=== PATIENT | male | born 1935 | race Caucasian/White ===

== ENCOUNTER 2022-09-09 20:59 | Inpatient (IN) ==
[2022-09-09 21:48] LABS: Basophils # (auto) 0.01 K/uL (0-0.2); Basophils % (auto) 0.2 %; Eosinophils # (auto) 0.02 K/uL (0-0.50); Eosinophils % (auto) 0.4 %; Hematocrit (blood only) 34.8 % (42.0-52.0); Hemoglobin 11.9 g/dl (14.0-18.0); Immature Granulocytes # (auto) 0.02 K/uL (0.01-0.20); Immature Granulocytes % (auto) 0.4 %; Lymphocytes # (auto) 0.53 K/uL (1.2-3.4); Lymphocytes % (auto) 10.3 %; Mean Corpuscular Hemoglobin 32.4 pg (25.0-34.0); Mean Corpuscular Hgb Conc 34.2 g/dL (32.0-36.0); Mean Corpuscular Volume 94.8 fL (80.0-100.0); Mean Platelet Volume 10.6 fL (9.4-12.4); Monocytes # (auto) 0.26 K/uL (0.11-0.59); Neutrophils # (auto) 4.32 K/uL (1.40-6.50); Neutrophils % (auto) 83.7 %; Platelet Count 147 K/uL (130-400); RDW Coefficient of Variation 14.5 % (11.5-14.5); RDW Standard Deviation 48.7 fL (36.4-46.3); Red Blood Count 3.67 M/uL (4.70-6.10); White Blood Count 5.16 K/ul (4.8-10.8)
[2022-09-09 21:58] LABS: Albumin Globulin Ratio 1.4 (0.9-2); Albumin Level 4.1 gm/dl (3.4-5.0); BUN Creatinine Ratio 16.4 (10-20); Bilirubin,Total 0.8 mg/dl (0.2-1.0); Creatinine Clr Calc Pharmacy 48.7 ml/min; Est GFR (African American) 65.7 ml/min; Est GFR (Non-African American) 56.7 ml/min; Globulin 2.9 gm/dl (2.5-4.0)
[2022-09-09 22:05] LABS: Troponin I High Sensitivity 23.2 pg/ml (0-20)
[2022-09-09 22:23] LABS: INR 1.1 (0.9-1.1); Partial Thromboplastin Ratio 1.4; Partial Thromboplastin Time 37.4 Seconds (21.0-31.0); Prothrombin Time 11.6 Seconds (9.0-12.0)
[2022-09-09 22:37] LABS: Magnesium 1.8 mg/dl (1.7-2.4)
--- NOTE | 2022-09-09 23:09 | Emergency Department Note ---
History of Present Illness General Chief complaint: Arrhythmia/Palpitations Stated complaint: PALPITATIONS,SWEATY, EYE PROBLEM,AFIB,DIZZY Time Seen by Provider: 09/09/22 21:57 History of Present Illness This 87-year-old male presents the ER complaining of racing heart, lightheadedness, dizziness and weakness for the past few days. Patient was seen here yesterday. He was offered admission and declined. He was seen by the PCPs office on Tuesday and started on metoprolol. Since then he feels like his symptoms are gotten worse. Patient denies chest pain, dyspnea, passing out, localized weakness. The is in the majority of the history and the agrees with it. Patient states he is willing to stay for admission now. Home Medications Medication Instructions Recorded Confirmed Type amlodipine 5 mg tablet 5 mg PO [facility] 09/09/22 09/09/22 History amoxicillin 500 mg-potassium 1 tab PO [facility] 09/09/22 09/09/22 History clavulanate 125 mg tablet apixaban 5 mg tablet (Eliquis) 5 mg PO [facility] 09/09/22 09/09/22 History atorvastatin 40 mg tablet 40 mg PO 09/09/22 09/09/22 History brimonidine 0.2 %-timolol 0.5 % 1 drp OPB [facility] 09/09/22 09/09/22 History eye drops (Combigan) furosemide 20 mg tablet 20 mg PO [facility] 09/09/22 09/09/22 History latanoprost 0.005 % eye drops 1 drp [facility] 09/09/22 09/09/22 History metoprolol succinate 25 mg 12.5 mg PO QPM 09/09/22 09/09/22 History tablet,extended release 24 hr Allergies Allergy/AdvReac Type Severity Reaction Status Date / Time morphine AdvReac Severe nausea/vomi Verified 09/09/22 22:48 ting Past Med/Surg History Medical History Anemia Atrial fibrillation Hypertension Social History Smoking Status: Never smoker Preferred Language: Czech Current Living Situation: Family Feels Safe at Home: Yes Review of Systems A total of 10 systems reviewed and were otherwise negative Physical Exam Vital Signs Vital Signs - 24 hr 09/09/22 21:01 09/09/22 21:50 09/09/22 21:58 Temperature 36.7 C Temperature Source Temporal Artery Scan Pulse Rate 94 H 95 H Pulse Rate [Finger] 96 H Pulse Rhythm Irregular Respiratory Rate 18 20 16 Respiratory Effort / Characteristics Non-Labored Spontaneous Respiratory Depth Normal Normal Blood Pressure 128/63 123/65 Blood Pressure [Right Arm] 123/65 Blood Pressure Mean 84 84 Blood Pressure Mean [Right Arm] 84 Pulse Oximetry 95 94 92 Oxygen Delivery Method Room Air Room Air Room Air Sepsis Recent Fever Within 48 Hours No Sepsis New/Unexplained Change in Mental Status No Sepsis Action Taken by Nursing No Action Required 09/09/22 22:05 Temperature Temperature Source Pulse Rate 94 H Pulse Rate [Finger] Pulse Rhythm Respiratory Rate Respiratory Effort / Characteristics Respiratory Depth Blood Pressure Blood Pressure [Right Arm] Blood Pressure Mean Blood Pressure Mean [Right Arm] Pulse Oximetry Oxygen Delivery Method Sepsis Recent Fever Within 48 Hours Sepsis New/Unexplained Change in Mental Status Sepsis Action Taken by Nursing VITALS: Vitals are noted on the nurse's note and reviewed by myself. Vital signs stable. GENERAL: Pleasant elderly male, in no acute distress, nondiaphoretic, well- developed well-nourished. SKIN: The skin was without rashes, erythema, edema, or bruising. There is no tenting of the skin. Capillary reflex less than 2 seconds. HEAD: Normocephalic atraumatic. EARS: External auditory canals clear, EYES: Pupils equal round and reactive to light and accommodation. Conjunctivae without injection, sclerae without icterus. Extraocular movements intact. NOSE: Patent, turbinates without inflammation or discharge. MOUTH: Mucous membranes moist. Pharynx without erythema or exudate. Uvula mid line. Airway patent. Tongue does not deviate. NECK: Supple without nuchal rigidity. No lymphadenopathy. No thyromegaly. Cervical spine is nontender. No JVD. HEART: Regular rate and rhythm LUNGS: Clear to auscultation bilaterally without wheezes, rales or rhonchi. No retractions or accessory muscle use. ABDOMEN: Positive bowel sounds x 4. Normal tympanic percussion. Soft, nontender, without masses or organomegaly. Perez sign negative. No guarding or rebound tenderness. No CVA tenderness MUSCULOSKELETAL: No muscle atrophy, erythema, or edema noted. NEURO: Patient was alert and oriented to person place and time. Normal sensation to light and sharp touch. No focal neurological deficits. Medical Decision Making Medical Records Attestation: I reviewed the patient's medical records. Home Medications Current Medication List: was personally reviewed by me Laboratory Data Attestation: I reviewed the patient's lab results. 09/09/22 21:21 09/09/22 21:21 Lab Results 09/09/22 09/09/22 09/09/22 Range/Units 21:21 21:21 21:21 WBC 5.16 (4.8-10.8) K/ul RBC 3.67 L (4.70-6.10) M/uL Hgb 11.9 L (14.0-18.0) g/dl Hct 34.8 L (42.0-52.0) % MCV 94.8 (80.0-100.0) fL MCH 32.4 (25.0-34.0) pg MCHC 34.2 (32.0-36.0) g/dL RDW Std Deviation 48.7 H (36.4-46.3) fL RDW Coeff of Leno 14.5 (11.5-14.5) % Plt Count 147 (130-400) K/uL MPV 10.6 (9.4-12.4) fL Immature Gran % (Auto) 0.4 % Neut % (Auto) 83.7 % Lymph % (Auto) 10.3 % [place] % (Auto) 5.0 % Eos % (Auto) 0.4 % Baso % (Auto) 0.2 % Neut # (Auto) 4.32 (1.40-6.50) K/uL Lymph # (Auto) 0.53 L (1.2-3.4) K/uL [place] # (Auto) 0.26 (0.11-0.59) K/uL Eos # (Auto) 0.02 (0-0.50) K/uL Baso # (Auto) 0.01 (0-0.2) K/uL Immature Gran # (Auto) 0.02 (0.01-0.20) K/uL PT 11.6 (9.0-12.0) Seconds INR 1.1 (0.9-1.1) APTT 37.4 H (21.0-31.0) Seconds PTT Ratio 1.4 Sodium 129 L (136-145) mmol/L Potassium 4.0 (3.5-5.1) mmol/L Chloride 99 (98-107) mmol/L Carbon Dioxide 24 (21-32) mmol/L Anion Gap 6 (3-11) BUN 19 (6-23) mg/dl Creatinine 1.16 (0.6-1.4) mg/dl Est Cr Clr Drug Dosing 48.7 ml/min Est GFR ( Amer) 65.7 ml/min Est GFR (Non-Af Amer) 56.7 ml/min BUN/Creatinine Ratio 16.4 (10-20) Glucose 131 H (70-99(Fasting)) mg/dl Osmolality (280-300) mOsm/kg Calcium 9.0 (8.6-10.3) mg/dl Magnesium 1.8 (1.7-2.4) mg/dl Total Bilirubin 0.8 (0.2-1.0) mg/dl AST 28 (13-39) U/L ALT 20 (7-52) U/L Alkaline Phosphatase 47 (34-104) U/L Troponin I High Sens 23.2 H (0-20) pg/ml Total Protein 7.0 (6.0-8.3) gm/dl Albumin 4.1 (3.4-5.0) gm/dl Globulin 2.9 (2.5-4.0) gm/dl Albumin/Globulin Ratio 1.4 (0.9-2) TSH (0.300-4.500) uIu/ml Urine Color Urine Appearance (Clear) Urine pH (4.5-7.5) Ur Specific [place] (1.000-1.030) Urine Protein (Negative) Urine Glucose (UA) (Negative) Urine Ketones (Negative) Urine Blood (Negative) Urine Nitrite (Negative) Urine Bilirubin (Negative) Urine Urobilinogen (Negative) Ur Leukocyte Esterase (Negative) Urine WBC (Auto) (0-5) /hpf Urine RBC (Auto) (0-4) /hpf U Hyaline Cast (Auto) (0-5) /lpf U Epithel Cells (Auto) (0-5) /lpf Urine Bacteria (Auto) (Negative) Urine Osmolality (500-800) mOsm/kg SARS-CoV-2, RNA, NAAT (NEGATIVE) 09/09/22 09/09/22 09/09/22 Range/Units 21:22 22:18 22:18 WBC (4.8-10.8) K/ul RBC (4.70-6.10) M/uL Hgb (14.0-18.0) g/dl Hct (42.0-52.0) % MCV (80.0-100.0) fL MCH (25.0-34.0) pg MCHC (32.0-36.0) g/dL RDW Std Deviation (36.4-46.3) fL RDW Coeff of [place]eno (11.5-14.5) % Plt Count (130-400) K/uL MPV (9.4-12.4) fL Immature Gran % (Auto) % Neut % (Auto) % Lymph % (Auto) % [place] % (Auto) % Eos % (Auto) % Baso % (Auto) % Neut # (Auto) (1.40-6.50) K/uL Lymph # (Auto) (1.2-3.4) K/uL [place] # (Auto) (0.11-0.59) K/uL Eos # (Auto) (0-0.50) K/uL Baso # (Auto) (0-0.2) K/uL Immature Gran # (Auto) (0.01-0.20) K/uL PT (9.0-12.0) Seconds INR (0.9-1.1) APTT (21.0-31.0) Seconds PTT Ratio Sodium (136-145) mmol/L Potassium (3.5-5.1) mmol/L Chloride (98-107) mmol/L Carbon Dioxide (21-32) mmol/L Anion Gap (3-11) BUN (6-23) mg/dl Creatinine (0.6-1.4) mg/dl Est Cr Clr Drug Dosing ml/min Est GFR ( Amer) ml/min Est GFR (Non-Af Amer) ml/min BUN/Creatinine Ratio (10-20) Glucose (70-99(Fasting)) mg/dl Osmolality 276 L (280-300) mOsm/kg Calcium (8.6-10.3) mg/dl Magnesium Cancelled (1.7-2.4) mg/dl Total Bilirubin (0.2-1.0) mg/dl AST (13-39) U/L ALT (7-52) U/L Alkaline Phosphatase (34-104) U/L Troponin I High Sens (0-20) pg/ml Total Protein (6.0-8.3) gm/dl Albumin (3.4-5.0) gm/dl Globulin (2.5-4.0) gm/dl Albumin/Globulin Ratio (0.9-2) TSH 2.219 (0.300-4.500) uIu/ml Urine Color Urine Appearance (Clear) Urine pH (4.5-7.5) Ur Specific [place] (1.000-1.030) Urine Protein (Negative) Urine Glucose (UA) (Negative) Urine Ketones (Negative) Urine Blood (Negative) Urine Nitrite (Negative) Urine Bilirubin (Negative) Urine Urobilinogen (Negative) Ur Leukocyte Esterase (Negative) Urine WBC (Auto) (0-5) /hpf Urine RBC (Auto) (0-4) /hpf U Hyaline Cast (Auto) (0-5) /lpf U Epithel Cells (Auto) (0-5) /lpf Urine Bacteria (Auto) (Negative) Urine Osmolality (500-800) mOsm/kg SARS-CoV-2, RNA, NAAT (NEGATIVE) 09/09/22 09/09/22 09/09/22 Range/Units Unknown Unknown Unknown WBC (4.8-10.8) K/ul RBC (4.70-6.10) M/uL Hgb (14.0-18.0) g/dl Hct (42.0-52.0) % MCV (80.0-100.0) fL MCH (25.0-34.0) pg MCHC (32.0-36.0) g/dL RDW Std Deviation (36.4-46.3) fL RDW Coeff of Leno (11.5-14.5) % Plt Count (130-400) K/uL MPV (9.4-12.4) fL Immature Gran % (Auto) % Neut % (Auto) % Lymph % (Auto) % [place] % (Auto) % Eos % (Auto) % Baso % (Auto) % Neut # (Auto) (1.40-6.50) K/uL Lymph # (Auto) (1.2-3.4) K/uL [place] # (Auto) (0.11-0.59) K/uL Eos # (Auto) (0-0.50) K/uL Baso # (Auto) (0-0.2) K/uL Immature Gran # (Auto) (0.01-0.20) K/uL PT (9.0-12.0) Seconds INR (0.9-1.1) APTT (21.0-31.0) Seconds PTT Ratio Sodium (136-145) mmol/L Potassium (3.5-5.1) mmol/L Chloride (98-107) mmol/L Carbon Dioxide (21-32) mmol/L Anion Gap (3-11) BUN (6-23) mg/dl Creatinine (0.6-1.4) mg/dl Est Cr Clr Drug Dosing ml/min Est GFR ( Amer) ml/min Est GFR (Non-Af Amer) ml/min BUN/Creatinine Ratio (10-20) Glucose (70-99(Fasting)) mg/dl Osmolality (280-300) mOsm/kg Calcium (8.6-10.3) mg/dl Magnesium (1.7-2.4) mg/dl Total Bilirubin (0.2-1.0) mg/dl AST (13-39) U/L ALT (7-52) U/L Alkaline Phosphatase (34-104) U/L Troponin I High Sens (0-20) pg/ml Total Protein (6.0-8.3) gm/dl Albumin (3.4-5.0) gm/dl Globulin (2.5-4.0) gm/dl Albumin/Globulin Ratio (0.9-2) TSH (0.300-4.500) uIu/ml Urine Color Yellow Urine Appearance Clear (Clear) Urine pH 5.5 (4.5-7.5) Ur Specific [place] 1.017 (1.000-1.030) Urine Protein 1+ H (Negative) Urine Glucose (UA) Negative (Negative) Urine Ketones Negative (Negative) Urine Blood Trace H (Negative) Urine Nitrite Negative (Negative) Urine Bilirubin Negative (Negative) Urine Urobilinogen Negative (Negative) Ur Leukocyte Esterase Negative (Negative) Urine WBC (Auto) 1-5 (0-5) /hpf Urine RBC (Auto) 0-4 (0-4) /hpf U Hyaline Cast (Auto) 0 (0-5) /lpf U Epithel Cells (Auto) 5-10 H (0-5) /lpf Urine Bacteria (Auto) Negative (Negative) Urine Osmolality 507 (500-800) mOsm/kg SARS-CoV-2, RNA, NAAT NEGATIVE (NEGATIVE) MDM Narrative Prior records/ancillary studies reviewed and summarized above. Nursing notes reviewed. Additional history obtained from family. The patient's history was concerning for weakness, tachycardia and lightheadedness. Differential diagnosis: Etiologies such as metabolic, infection, hypo/hyperglycemia, electrolyte abnormalities, cardiac sources, intracerebral event, toxicologic, neurologic, as well as others were entertained. Physical examination: As above. ER treatment provided: IV Lock An order was placed for continuous cardiac monitoring. The monitor shows a rate of 60-1 50 with a A-flutter rhythm per my interpretation. Patient was observed On reassessment the patient felt better. Diagnostics interpretation by me: ECG: Ordered for weakness EKG: Left axis, left bundle branch block, a flutter independent interpreted by myself. The labs Independently Interpreted by myself revealed hyponatremia and osmolarity levels were ordered. Elevated troponin. Mild anemia Imaging studies: CTs from yesterday were reviewed Consultation: A consultation was placed with the hospitalist. The case was discussed and diagnostics were reviewed. The patient was evaluated in the ER for further treatment. Exam and history seem consistent with A-flutter with hyponatremia and elevated troponin. Patient is requesting to stay now for further evaluation and work-up. Medicine was consulted and the case was discussed. He will be admitted to the medical team for further evaluation work-up for possible new onset a flutter. By the evaluation outlined above emergent etiologies such as infection, intrace rebral event, toxologic, neurologic, abnormalities blood glucose, metabolic, as well as others were deemed relatively unlikely. The pt informed about the findings as listed above. All questions were answered and pleased with the treatment. The chart was completed utilizing [employer] voice recognition software. Grammatical errors, random word insertions, pronoun errors, and incomplete sentences are an occassional consequence of this system due to software limitations, ambient noise, and hardware issues. Any formal questions or concerns about the content, text, or information contained within the body of this dictation should be directly addressed to the physician assistant community manager for clarification. Impression & Plan Acute hyponatremia, Dizziness, Weakness, Atrial flutter, Elevated troponin Discharge Plan Visit Data Chief Complaint: Arrhythmia/Palpitations Stated Complaint: PALPITATIONS,SWEATY, EYE PROBLEM,AFIB,DIZZY ED Provider: Alyce Shelton ED Midlevel Provider: Sharona Dorman Discharge Problem: Acute hyponatremia, Dizziness, Weakness, Atrial flutter, Elevated troponin Patient Disposition: Admitted As Inpatient Condition: Fair Forms Stand Alone Forms: My [facility] Prescriptions Prescriptions: No Action metoprolol succinate 25 mg tablet extended release 24 hr 12.5 mg PO QPM amoxicillin-pot clavulanate 500-125 mg tablet 1 tab PO [facility] Rx Instructions: take for 7 days started 09/06/22 atorvastatin 40 mg tablet 40 mg PO HS amlodipine 5 mg tablet 5 mg PO QAM furosemide 20 mg tablet 20 mg PO QAM Eliquis 5 mg tablet 5 mg PO [facility] latanoprost 0.005 % drops 1 drp OPB HS brimonidine-timolol [Combigan] 0.2-0.5 % drops 1 drp OPB [facility] Referrals Referrals: Nati Trimble [Primary Care Provider] -
[2022-09-09] MEDS ORDERED: MAGNESIUM SULFATE / D5W 1 GM/100 ML BAG IV ONE (23:15)
--- NOTE | 2022-09-09 23:22 | History & Physical Report ---
Date of Service September 09, 2022 Assessment & Plan (1) Acute hyponatremia: (2) Elevated troponin: (3) Anemia: (4) Atrial flutter: (5) Hyperlipidemia: (6) Atrial fibrillation: (7) Glaucoma: (8) CHF (congestive heart failure): (9) Near syncope: (10) Hypomagnesemia: Plan Near syncope/orthostatic hypotension by symptomatology- Differential including but not limited to hyponatremia, atrial fibrillation/flutter, infection, fluid overload Tachybradycardia syndrome/hypertension/elevated troponin- Troponin 23.2 on admission, likely type II supply demand mismatch secondary to increased heart rate The patient will be admitted to telemetry for serial cardiac enzymes, serial EKG's, cardiac rhythm monitoring and a 2-D echocardiogram with Dopplers. Patient has pacer to prevent bradycardia Hold amlodipine to allow increased blood pressure to push negative inotropes Give additional dose of metoprolol succinate 12.5 mg this evening, and then increase to twice daily Patient may need to be on antiarrhythmic such as amiodarone Give magnesium sulfate 1 g IV for mag of 1.8 Continue apixaban Consult cardiology Hyponatremia- Sodium 129, serum osmolality 276, urine osmolality 507 Fluid restrict to 1800 cc Follow serially Hypomagnesemia- Magnesium 1.8. Give 1 g mag sulfate IV and recheck in a.m. Hyperlipidemia- Continue atorvastatin Glaucoma- Continue usual eyedrops latanoprost and brimonidine-timolol History of Present Illness Chief Complaint: The patient presents to the emergency department with generalized weakness, and family concerns regarding heart rate, atrial fibrillation versus atrial flutter, having been started on metoprolol succinate 2 days ago in the outpatient setting Primary Care Provider: Nati Trimble The patient is a 87-year-old male with a past medical history including atrial fibrillation/flutter, hypertension, chronic anticoagulation with Eliquis, hyperlipidemia, glaucoma, CHF and hypertension. The patient has a history of A- fib/flutter,, and is status post pacer. He describes orthostatic hypotension symptoms, worsening over the past few days, where he feels like he is going to get lightheaded or dizzy when he goes from sitting to standing. He was started on metoprolol succinate 12.5 mg daily by outpatient physician, and has had 2 doses so far. Significant laboratories: Troponin 23.2, magnesium 1.8, sodium 129, hemoglobin 11.9, hematocrit 34.8, glucose 131, serum osmolality 276 and urine osmolality 507 Allergies Allergy/AdvReac Type Severity Reaction Status Date / Time morphine AdvReac Severe nausea/vomi Verified 09/09/22 22:48 ting Home Medications Medication Instructions Recorded Confirmed Type amlodipine 5 mg tablet 5 mg PO QAM 09/09/22 09/09/22 History amoxicillin 500 mg-potassium 1 tab PO [facility] 09/09/22 09/09/22 History clavulanate 125 mg tablet apixaban 5 mg tablet (Eliquis) 5 mg PO [facility] 09/09/22 09/09/22 History atorvastatin 40 mg tablet 40 mg PO 09/09/22 09/09/22 History brimonidine 0.2 %-timolol 0.5 % 1 drp OPB [facility] 09/09/22 09/09/22 History eye drops (Combigan) furosemide 20 mg tablet 20 mg PO QAM 09/09/22 09/09/22 History latanoprost 0.005 % eye drops 1 drp [facility] 09/09/22 09/09/22 History metoprolol succinate 25 mg 12.5 mg PO QPM 09/09/22 09/09/22 History tablet,extended release 24 hr Past Med/Surg History Medical History (Updated 09/10/22 @ 05:31 by Barak Brewer MD) Anemia Atrial fibrillation CHF (congestive heart failure) Glaucoma Hyperlipidemia Hypertension Social History Smoking Status: Never smoker Hx Alcohol Use: No Hx Substance Use: No Preferred Language: Lao Communication Ability: Effective Imaging Tech Required: No Beliefs That Will Affect Care: None Current Living Situation: Spouse Feels Safe at Home: Yes Safety Concerns: Feels Safe At This Time Assistive Devices: Cane, Denture - Upper, Denture - Lower, Glasses and Walker Review of Systems Review of Systems: The patient denies chest pain, cough, lower extremity swelling, sore throat, fevers, chills, sweats, nausea, vomiting, diarrhea , constipation, abdominal pain, pelvic pain, blood in urine or stool, dysuria, urinary frequency or urgency, headache, memory loss, loss of consciousness, rash, abnormal bruising or bleeding, focal weakness, numbness or tingling in arms or legs, generalized arthralgias or myalgias, back or neck pain, or night sweats. The review of systems is otherwise negative other than for that already noted above, and at least 10 systems have been reviewed. Physical Exam Physical Exam: The patient is awake, alert and oriented 3, well developed and well nourished, normocephalic and atraumatic, lying in bed and in no acute distress. HEENT--PERRL, EOMI, mucous membranes and oropharynx normal. Neck--supple. No JVD. No bruits. Thyroid normal, trachea midline, no adenopathy. Heart--mildly tachycardic. Normal S1 and S2. No murmurs, rubs or gallops. Lungs--clear bilaterally, no respiratory distress, no accessory muscle use. Abdomen--normal bowel sounds and soft. Nontender. Nondistended, no hernias or masses, no organomegaly. Extremities--no cyanosis or clubbing. No edema. Dermatologic--normal skin turgor, normal color, no abnormal lymph nodes, no rash. Neurologic--cranial nerves II through XII grossly intact. Rheumatologic--normal range of motion. Psychiatric--normal affect. Results & Data Results & Data Vital Signs (Past 12 Hours) Vital Signs Temp Pulse Pulse Resp BP BP Pulse Ox 09/09/22 22:05 94 H 09/09/22 21:58 95 H 16 123/65 92 09/09/22 21:50 96 H 20 123/65 94 09/09/22 21:01 36.7 C 94 H 18 128/63 95 O2 Del Method 09/09/22 22:05 09/09/22 21:58 Room Air 09/09/22 21:50 Room Air 09/09/22 21:01 Room Air Laboratory Results Laboratory Results WBC 5.16 K/ul (4.8-10.8) 09/09/22 21:21 RBC 3.67 M/uL (4.70-6.10) L 09/09/22 21:21 Hgb 11.9 g/dl (14.0-18.0) L 09/09/22 21:21 Hct 34.8 % (42.0-52.0) L 09/09/22 21:21 MCV 94.8 fL (80.0-100.0) 09/09/22 21: MCH 32.4 pg (25.0-34.0) 09/09/22: MCHC 34.2 g/dL (32.0-36.0) 09/09/22: RDW Std Deviation 48.7 fL (36.4-46.3) H 09/09/22: RDW Coeff of Leno 14.5 % (11.5-14.5) 09/09/22: Plt Count 147 K/uL (130-400) 09/09/22 21: MPV 10.6 fL (9.4-12.4) 09/09/22: Immature Gran % (Auto) 0.4 % 09/09/22: Neut % (Auto) 83.7 % 09/09/22: Lymph % (Auto) 10.3 % 09/09/22: [place] % (Auto) 5.0 % 09/09/22: Eos % (Auto) 0.4 % 09/09/22: Baso % (Auto) 0.2 % 09/09/22: Neut # (Auto) 4.32 K/uL (1.40-6.50) 09/09/22: Lymph # (Auto) 0.53 K/uL (1.2-3.4) L 09/09/22: [place] # (Auto) 0.26 K/uL (0.11-0.59) 09/09/22: Eos # (Auto) 0.02 K/uL (0-0.50) 09/09/22: Baso # (Auto) 0.01 K/uL (0-0.2) 09/09/22: Immature Gran # (Auto) 0.02 K/uL (0.01-0.20) 09/09/22: PT 11.6 Seconds (9.0-12.0) 09/09/22: INR 1.1 (0.9-1.1) 09/09/22: APTT 37.4 Seconds (21.0-31.0) H 09/09/22: PTT Ratio 1.4 09/09/22 21:21 Sodium 129 mmol/L (136-145) L 09/09/22 21:21 Potassium 4.0 mmol/L (3.5-5.1) 09/09/22 21:21 Chloride 99 mmol/L (98-107) 09/09/22 21:21 Carbon Dioxide 24 mmol/L (21-32) 09/09/22 21:21 Anion Gap 6 (3-11) 09/09/22 21:21 BUN 19 mg/dl (6-23) 09/09/22 21:21 Creatinine 1.16 mg/dl (0.6-1.4) 09/09/22 21:21 Est Cr Clr Drug Dosing 48.7 ml/min 09/09/22 21:21 Est GFR ( Amer) 65.7 ml/min 09/09/22 21:21 Est GFR (Non-Af Amer) 56.7 ml/min 09/09/22 21:21 BUN/Creatinine Ratio 16.4 (10-20) 09/09/22 21:21 Glucose 131 mg/dl (70-99(Fasting)) H 09/09/22 21:21 Osmolality 276 mOsm/kg (280-300) L 09/09/22 21:22 Calcium 9.0 mg/dl (8.6-10.3) 09/09/22 21:21 Magnesium Cancelled 09/09/22 22:18 Total Bilirubin 0.8 mg/dl (0.2-1.0) 09/09/22 21:21 AST 28 U/L (13-39) 09/09/22 21:21 ALT 20 U/L (7-52) 09/09/22 21:21 Alkaline Phosphatase 47 U/L (34-104) 09/09/22 21:21 Troponin I High Sens 23.2 pg/ml (0-20) H 09/09/22 21:21 Total Protein 7.0 gm/dl (6.0-8.3) 09/09/22 21:21 Albumin 4.1 gm/dl (3.4-5.0) 09/09/22 21:21 Globulin 2.9 gm/dl (2.5-4.0) 09/09/22 21:21 Albumin/Globulin Ratio 1.4 (0.9-2) 09/09/22 21:21 TSH 2.219 uIu/ml (0.300-4.500) 09/09/22 22:18 Urine Color Yellow 09/09/22 Unknown Urine Appearance Clear (Clear) 09/09/22 Unknown Urine pH 5.5 (4.5-7.5) 09/09/22 Unknown Ur Specific [place] 1.017 (1.000-1.030) 09/09/22 Unknown Urine Protein 1+ (Negative) H 09/09/22 Unknown Urine Glucose (UA) Negative (Negative) 09/09/22 Unknown Urine Ketones Negative (Negative) 09/09/22 Unknown Urine Blood Trace (Negative) H 09/09/22 Unknown Urine Nitrite Negative (Negative) 09/09/22 Unknown Urine Bilirubin Negative (Negative) 09/09/22 Unknown Urine Urobilinogen Negative (Negative) 09/09/22 Unknown Ur Leukocyte Esterase Negative (Negative) 09/09/22 Unknown Urine WBC (Auto) 1-5 /hpf (0-5) 09/09/22 Unknown Urine RBC (Auto) 0-4 /hpf (0-4) 09/09/22 Unknown U Hyaline Cast (Auto) 0 /lpf (0-5) 09/09/22 Unknown U Epithel Cells (Auto) 5-10 /lpf (0-5) H 09/09/22 Unknown Urine Bacteria (Auto) Negative (Negative) 09/09/22 Unknown Urine Osmolality 507 mOsm/kg (500-800) 09/09/22 Unknown SARS-CoV-2, RNA, NAAT NEGATIVE (NEGATIVE) 09/09/22 Unknown Code Status & VTE Plan Code Status Full code VTE Prophylaxis Plan VTE Prophylaxis will be ordered: Yes PG Care Time/CCT Total # of Minutes Spent Total Time Spent with Patient: Total time spent is greater than 50% in coordination of care (as documented) at patient's floor/unit and/or counseling patient: Coding Level of Care Code 00998 INT INP/OBS CARE 3/75MIN Diagnoses Acute hyponatremia E87.1 Elevated troponin R77.8 Anemia D64.9 Anemia type: unspecified type Atrial flutter I48.92 Hyperlipidemia E78.5 Atrial fibrillation I48.91 Glaucoma H40.9 CHF (congestive heart failure) I50.9 Near syncope R55 Hypomagnesemia E83.42 (3) Anemia Anemia type: unspecified type Qualified Code(s): D64.9 - Anemia, unspecified
[2022-09-09 23:41] LABS: Appearance Urine Clear (Clear); Bacteria Urine Automated Negative (Negative); Bilirubin Urine Negative (Negative); Blood Urine Trace (Negative); Cast Urine Automated 0 /lpf (0-5); Color Urine Yellow; Glucose Urine UA Negative (Negative); Ketones Urine Negative (Negative); Leukocyte Esterase Urine Negative (Negative); Nitrite Urine Negative (Negative); Protein Urine 1+ (Negative); RBC Urine Automated 0-4 /hpf (0-4); Specific Gravity Urine 1.017 (1.000-1.030); Urobilinogen Urine Negative (Negative); pH Urine 5.5 (4.5-7.5)
[2022-09-10] MEDS ORDERED: ONDANSETRON INJ 2 MG/ML 2 ML VIAL IV PRN (01:13)
[2022-09-10] MEDS: METOPROLOL SUCC 25MG EXT REL TAB PO SCH ×3 (02:08→21:39)
[2022-09-10] MEDS: ACETAMINOPHEN 325 MG TAB PO PRN ×3 (02:40→16:43)
[2022-09-10 08:22] LABS: Basophils # (auto) 0.01 K/uL (0-0.2); Basophils % (auto) 0.2 %; Eosinophils # (auto) 0.03 K/uL (0-0.50); Eosinophils % (auto) 0.7 %; Hematocrit (blood only) 31.3 % (42.0-52.0); Hemoglobin 10.8 g/dl (14.0-18.0); Immature Granulocytes # (auto) 0.03 K/uL (0.01-0.20); Immature Granulocytes % (auto) 0.7 %; Lymphocytes # (auto) 0.43 K/uL (1.2-3.4); Lymphocytes % (auto) 9.7 %; Mean Corpuscular Hemoglobin 32.8 pg (25.0-34.0); Mean Corpuscular Hgb Conc 34.5 g/dL (32.0-36.0); Mean Corpuscular Volume 95.1 fL (80.0-100.0); Mean Platelet Volume 11.2 fL (9.4-12.4); Monocytes # (auto) 0.25 K/uL (0.11-0.59); Monocytes % (auto) 5.6 %; Neutrophils % (auto) 83.1 %; Platelet Count 120 K/uL (130-400); RDW Coefficient of Variation 15.2 % (11.5-14.5); RDW Standard Deviation 48.8 fL (36.4-46.3); Red Blood Count 3.29 M/uL (4.70-6.10); White Blood Count 4.45 K/ul (4.8-10.8)
[2022-09-10 08:26] LABS: Albumin Level 3.6 gm/dl (3.4-5.0); BUN Creatinine Ratio 18.1 (10-20); Calcium 8.5 mg/dl (8.6-10.3); Creatinine Clr Calc Pharmacy 60.1 ml/min; Est GFR (African American) 84.7 ml/min; Est GFR (Non-African American) 73.1 ml/min; Magnesium 2.2 mg/dl (1.7-2.4); Phosphorus 3.7 mg/dl (2.5-4.9); Potassium 3.4 mmol/L (3.5-5.1)
[2022-09-10] MEDS: APIXABAN 5 MG TABLET PO SCH ×2 (08:35→21:29)
[2022-09-10] MEDS: FUROSEMIDE 20 MG TAB PO SCH (08:35)
--- NOTE | 2022-09-10 09:17 | Cardiology Consultation ---
Date of Consultation September 10, 2022 History of Present Illness Reason for Consultation: Weakness, hypotension, lightheadedness Attending Physician: Shahbaz Xiong DO History of Present Illness I last saw the patient in July on the . At that time he was stable he had been in atrial fibrillation with a controlled ventricular response since the late fall. He had been on anticoagulation since May and tolerating it without any issues. His heart rate in the office was 84 bpm with a blood pressure of 108/56. At that time he was asymptomatic with his atrial fibrillation and denied a decline in his functional capacity and denied any shortness of breath with activity. They were very reluctant to consider a cardioversion. It sounds like over the last month he was placed on pilocarpine for his eyes and since then his heart rate has been increased. Over the last week to 10 days he has had lightheadedness and dizziness and is felt weak and has had orthostatic blood pressures documented. There are some question as to whether he had an outpatient URI. He is COVID-negative here. In the exam room he is actually shaking today he notes when his hands get cold he gets cold and this has been going on for years. He denies feeling short of breath talking in sentences but the nurse notes with him trying to adjust his pants he became quite dyspneic. He currently denies any lightheadedness or dizziness. He denies any chest pain or chest pressure. He denies any falls. He notes he has been compliant with his medications including his oral anticoagulant. He notes he has not missed any doses. Allergies Allergy/AdvReac Type Severity Reaction Status Date / Time morphine AdvReac Severe nausea/vomi Verified 09/09/22 22:48 ting Home Medications Medication Instructions Recorded Confirmed Type amlodipine 5 mg tablet 5 mg PO QAM 09/09/22 09/09/22 History amoxicillin 500 mg-potassium 1 tab PO AMPM 09/09/22 09/09/22 History clavulanate 125 mg tablet apixaban 5 mg tablet (Eliquis) 5 mg PO [facility] 09/09/22 09/09/22 History atorvastatin 40 mg tablet 40 mg PO 09/09/22 09/09/22 History brimonidine 0.2 %-timolol 0.5 % 1 drp OPB [facility] 09/09/22 09/09/22 History eye drops (Combigan) furosemide 20 mg tablet 20 mg PO QAM 09/09/22 09/09/22 History latanoprost 0.005 % eye drops 1 drp OPB [facility] 09/09/22 09/09/22 History metoprolol succinate 25 mg 12.5 mg PO QPM 09/09/22 09/09/22 History tablet,extended release 24 hr Patient History Medical History Anemia Atrial fibrillation CHF (congestive heart failure) Glaucoma Hyperlipidemia Hypertension Social History Smoking Status: Never smoker Hx Alcohol Use: No Hx Substance Use: No Preferred Language: French Communication Ability: Effective Fight Manager Required: No Beliefs That Will Affect Care: None Current Living Situation: Spouse Feels Safe at Home: Yes Safety Concerns: Feels Safe At This Time Assistive Devices: Cane, Denture - Upper, Denture - Lower, Glasses and Walker Results & Data Vital Signs (Past 12 Hours) Vital Signs Temp Pulse Pulse Resp BP BP Pulse Ox 09/10/22 07:00 37.0 C 78 20 109/62 98 09/10/22 03:06 38.0 C H 90 22 108/65 95 09/10/22 01:40 09/10/22 01:33 36.8 C 96 H 24 125/81 90 09/10/22 02:11 37.1 C 09/10/22 00:52 37.4 C 09/10/22 00:30 96 H 26 H 09/10/22 00:00 94 H 20 09/09/22 23:30 99 H 18 09/09/22 23:00 95 H 26 H 09/09/22 22:30 96 H 23 09/09/22 22:03 96 H 25 H 91 09/09/22 22:05 94 H 09/09/22 21:58 95 H 16 123/65 92 09/09/22 21:50 96 H 20 123/65 94 O2 Del Method O2 Flow Rate 09/10/22 07:00 Room Air 09/10/22 03:06 Nasal Cannula 2 09/10/22 01:40 Nasal Cannula 2 09/10/22 01:33 Nasal Cannula 2 09/10/22 02:11 09/10/22 00:52 09/10/22 00:30 09/10/22 00:00 09/09/22 23:30 09/09/22 23:00 09/09/22 22:30 09/09/22 22:03 09/09/22 22:05 09/09/22 21:58 Room Air 09/09/22 21:50 Room Air he is awake alert and oriented x3 HEENT no evidence of carotid bruits his jugular venous pressure appeared normal Lungs: Clear to auscultation bilaterally no rales rhonchi or wheezing Heart: Tachycardic and irregular (underlying atrial flutter) no appreciable murmurs Abdomen: Soft nontender nondistended positive bowel sounds Extremities: No clubbing cyanosis or edema Psychiatric: His affect appeared appropriate IMPRESSIONS: 1. EKG with atrial flutter with increased ventricular response possibly related to the last month of pilocarpine use 2. Episode of pneumonia in May 2022 requiring thoracentesis 3. Chronic diastolic heart failure. 4. History of preserved left ventricular systolic function 5. History of dual-chamber pacemaker secondary to sinus node dysfunction 6. left bundle branch block 7 history of TIA It appears that his hyponatremia last night is actually lab error as his sodium this morning is normal. It does sound like he was orthostatic as an outpatient and his amlodipine has been discontinued. He is currently on 12 and half milligrams of Toprol twice daily. His heart rate still remain relatively fast with atrial flutter. The question is how much of this is just pilocarpine with some degree of systemic absorption increasing his heart rate. The other question is how much of this is dehydration as his urine seems relatively concentrated this morning and the last part is whether he just now has atrial flutter that difficult to control. Unfortunately, he ate breakfast this morning. Therefore cardioversion cannot be performed today. cardioversion which has been discussed in the past and they have been very reluctant to consider have to be done. I would add digoxin to his medical regimen 0.25 mg x 2 doses today and then 0.125 mg daily I would encourage him to increase his fluid consumption. I would ambulate him and see if he is lightheaded or dizzy or having orthostatic symptoms. If he is still weak and dizzy then he will need to stay over the weekend and we can plan cardioversion Tuesday morning. There is a lot of logistics to arranging this. If this is the decision then we will need to be notified by early this afternoon to arrange for it with the Cardiovascular Physician Assistant and anesthesia. If he is stable without orthostatic symptoms is ambulating safely and can go home and he can be discharged on beta-blockers and digoxin. We can discuss cardioversion as an outpatient. We do not to worry about bradycardia due to his pacemaker. He should remain on oral anticoagulation. This was discussed with the nursing staff
[2022-09-10] MEDS: DIGOXIN 0.125 MG TAB PO SCH ×2 (10:03→21:29)
[2022-09-10 16:07] LABS: Adenovirus PCR Not Detected (NotDetected); Bordetella parapertussis PCR Not Detected (NotDetected); Bordetella pertussis PCR Not Detected (NotDetected); Chlamydia pneumoniae PCR Not Detected (NotDetected); Coronavirus 229E PCR Not Detected (NotDetected); Coronavirus CoV-2 (COVID19)PCR Not Detected (NotDetected); Coronavirus HKU1 PCR Not Detected (NotDetected); Coronavirus NL63 PCR Not Detected (NotDetected); Coronavirus OC43PCR Not Detected (NotDetected); Human Metapneumovirus PCR Not Detected (NotDetected); Influenza A PCR Not Detected (NotDetected); Influenza B PCR Not Detected (NotDetected); Mycoplasma pneumoniae PCR Not Detected (NotDetected); Parainfluenza Virus 1 PCR Not Detected (NotDetected); Parainfluenza Virus 2 PCR Not Detected (NotDetected); Parainfluenza Virus 3 PCR Not Detected (NotDetected); Parainfluenza Virus 4 PCR Not Detected (NotDetected); Respiratory Syncytial VirusPCR Not Detected (NotDetected); Rhinovirus/Enterovirus PCR Not Detected (NotDetected)
[2022-09-10] MEDS: DIGOXIN 125 MCG in SYRINGE 9.5 ML IV SCH (16:24)
--- NOTE | 2022-09-10 19:25 | Hospitalist Progress Note ---
Date of Service September 10, 2022 Assessment & Plan (1) Infection: Plan: After hearing his story, it sounds like he is suffering fatigue/malaise, and tachycardia due to recurrent infection. Given his leukopenia and thrombocytopenia, viral versus tickborne seems to be the biggest differential that would do this; and with his respiratory symptoms I would certainly suspect viral. That said, given that we are in [place] endemic areaI sent per peripheral smear for tick borne inclusionsthis was negative, I will continue to follow closely, and if he is not getting better, or for anything seems to evolve in a more tickborne predominancecertainly will start treatment. In the meantime, continue supportive care, he is on supplemental oxygen yet at the same time his pulse ox's are all in the high 90s, so we may simply need to wean. Do not see on x-ray or hear anything that really seems fitting with a pneumonia, and his duration of illness as well as symmetric exam and lack of "double illness sign" seem inconsistent with any bacterial overgrowth sinusitis. For now supportive care. (The oxygen may have been from his questionable acute diastolic CHFif present on admission it was worse than current, that certainly could explain things) I suspect his tachycardia is really a reflex tachycardia to being sick, but given that his rhythm is A-fib, it is manifesting as RVR. Discussed with patient and that given how sick it sounds like he was in May, it would easily take a few months to get through the deconditioning from that, and I suspect prior to recovery from that illness, he has gotten sick again. (2) Atrial fibrillation: Plan: Rate control, as above, I suspect most of his symptoms are due to infection, as well as deconditioning. (3) Acute hyponatremia: Plan: May have had a little bit of fluid retention/acute diastolic CHF rate relatedbut seems to have improved. If I cannot wean the oxygen, given that he does not look like he has a pneumonia, we will try additional Lasix. (4) Elevated troponin: Plan: Very mild demand ischemia due to above (5) Weakness: Plan: Deconditioning/weakness due to above, superimposed on what sounds to been a fairly severe degree of deconditioning from his illness in May (6) DVT prophylaxis: Plan: Anticoagulated (7) Discharge planning issues: Plan: Hopefully will be able to go home after the above conditions are improving. Admission and Anticipated Discharge Date Admission Date: September 09, 2022 Subjective History obtained from patient and . Notes that up until early May he was in pretty good shape for his age, doing well, related even wondering about a situation where they were cleaning out a shed in the [facility] (it sounds like doing fairly heavy labor) and he had a few bites on the side of his neckbut this was in February, and he felt fine until May. Ended up having a septic picturepresumed to be due to pneumoniain May, where he was admitted at [facility] for quite a while. That time he had rigors chills. After discharge, completing antibiotics, etc.he really felt almost back to okay except for very noticeably feeling fatigued and weakshe was continuing to do therapyand whenever I was asking him about how he felt, he noted "I was thinking about quitting therapy because I did not think it was helping, because I was so weak" however, he had no tachycardia at that time, and no respiratory symptoms, no further chills/shaking spells. He was started on eyedrops on August 04, his catalogs his vitals every day, and for the entire next month his heart rates were basically right around 80. It was not until about 5 days prior to admission that his heart rate started to increase into the [address] range. He also notes during that time that he started to have a runny nose, and then in the last day or so, started to have shaking chills again. He does not feel short of breath, but also does not wear chronic oxygen at home. He does feel congested. No rashes. Review of Systems Review of Systems: All systems reviewed & are unremarkable except as noted in HPI & below Physical Exam Physical Exam: In general he is awake and alert pleasant but appears fatigued. No distress. HEENT normocephalic atraumatic pharynx with mild erythema, mild maxillary sinus tenderness to palpation, less than frontal. Neck is supple, hard to really gauge but I do not think there is any adenopathy. Cardio is irregularly irregular, rate in the mid 90s. Lungs are clear to auscultation bilaterally no rales rhonchi or wheeze with good effort. Abdomen is soft nondistended nontender no masses organomegaly. Extremities show no cyanosis clubbing or edema, no calf tenderness. Neuro without any focal deficits. CBC, BMP, chest x-ray, head CT all reviewed. Later ordered respiratory bio fire and peripheral smear for tickborne parasitesthose were reviewed as well. Results & Data Results & Data Vital Signs (Past 12 Hours) Vital Signs Temp Pulse Pulse Resp BP Pulse Ox O2 Del Method 09/10/22 15:46 99.5 F 96 H 20 122/67 100 Nasal Cannula 09/10/22 15:06 96 H 09/10/22 11:52 98.2 F 97 H 18 107/57 L 93 Nasal Cannula 09/10/22 11:00 86 09/10/22 11:00 Nasal Cannula 09/10/22 10:03 108 H O2 Flow Rate 09/10/22 15:46 4 09/10/22 15:06 09/10/22 11:52 4 09/10/22 11:00 09/10/22 11:00 3 09/10/22 10:03 PG Care Time/CCT Total # of Minutes Spent Total Time Spent with Patient: Total time spent is greater than 50% in coordination of care (as documented) at patient's floor/unit and/or counseling patient: Coding Level of Care Code 32931 SUB INP/OBS CARE 3/50MIN Diagnoses Infection B99.9 Atrial fibrillation I48.91 Acute hyponatremia E87.1 Elevated troponin R77.8 Weakness R53.1 DVT prophylaxis Z29.9 Discharge planning issues Z02.9
[2022-09-10] MEDS: ATORVASTATIN 40 MG TAB PO SCH (21:29)
[2022-09-10] MEDS: LATANOPROST 0.005% OP SOLN 2.5 ML BTL OPB SCH (21:31)
[2022-09-10] MEDS: BRIMONIDINE TARTRATE/TIMOLOL OPB SCH (21:32)
--- NOTE | 2022-09-11 05:31 | Electrocardiogram Report ---
Test Reason : Blood Pressure : / mmHG Vent. Rate : 094 BPM Atrial Rate : 094 BPM P-R Int : 240 ms QRS Dur : 132 ms QT Int : 390 ms P-R-T Axes : 100 -64 112 degrees QTc Int : 487 ms Atrial flutter Left axis deviation Left bundle branch block Abnormal ECG When compared with ECG of 08-SEP-2022 15:22, Premature ventricular complexes are no longer Present Confirmed by Toribio Zamarripa ([id number]) on 09/11/2022 5:31:40 AM Referred By: REFERRED SELF Confirmed By:Toribio Zamarripa
--- NOTE | 2022-09-11 05:42 | Electrocardiogram Report ---
Test Reason : Blood Pressure : / mmHG Vent. Rate : 092 BPM Atrial Rate : 276 BPM P-R Int : 000 ms QRS Dur : 150 ms QT Int : 448 ms P-R-T Axes : 000 -56 105 degrees QTc Int : 554 ms Atrial flutter with 3:1 A-V conduction Left axis deviation Left bundle branch block Abnormal ECG When compared with ECG of 09-SEP-2022 21:13, QT has lengthened Confirmed by Toribio Zamarripa ([id number]) on 09/11/2022 5:41:41 AM Referred By: REFERRED SELF Confirmed By:Toribio Zamarripa
[2022-09-11 07:43] LABS: Basophils # (auto) 0.02 K/uL (0-0.2); Basophils % (auto) 0.5 %; Eosinophils # (auto) 0.07 K/uL (0-0.50); Eosinophils % (auto) 1.6 %; Hematocrit (blood only) 31.5 % (42.0-52.0); Hemoglobin 10.9 g/dl (14.0-18.0); Immature Granulocytes # (auto) 0.02 K/uL (0.01-0.20); Immature Granulocytes % (auto) 0.5 %; Lymphocytes # (auto) 0.46 K/uL (1.2-3.4); Lymphocytes % (auto) 10.6 %; Mean Corpuscular Hemoglobin 32.7 pg (25.0-34.0); Mean Corpuscular Hgb Conc 34.6 g/dL (32.0-36.0); Mean Corpuscular Volume 94.6 fL (80.0-100.0); Mean Platelet Volume 11.5 fL (9.4-12.4); Monocytes # (auto) 0.26 K/uL (0.11-0.59); Neutrophils # (auto) 3.53 K/uL (1.40-6.50); Neutrophils % (auto) 80.8 %; Platelet Count 122 K/uL (130-400); RDW Coefficient of Variation 14.5 % (11.5-14.5); RDW Standard Deviation 47.5 fL (36.4-46.3); Red Blood Count 3.33 M/uL (4.70-6.10); White Blood Count 4.36 K/ul (4.8-10.8)
--- NOTE | 2022-09-11 07:43 | Electrocardiogram Report ---
Test Reason : Blood Pressure : / mmHG Vent. Rate : 097 BPM Atrial Rate : 340 BPM P-R Int : 000 ms QRS Dur : 130 ms QT Int : 372 ms P-R-T Axes : 000 -69 115 degrees QTc Int : 472 ms Atrial flutter Left axis deviation Left bundle branch block Abnormal ECG When compared with ECG of 10-SEP-2022 04:39, QT has shortened Confirmed by Kuldip Siegel ([id number]) on 09/11/2022 7:43:25 AM Referred By: REFERRED SELF Confirmed By:Prince Siegel
[2022-09-11 08:00] LABS: Albumin Level 3.4 gm/dl (3.4-5.0); BUN Creatinine Ratio 19.5 (10-20); C Reactive Protein 15.52 mg/dl (0-0.5); Calcium 8.4 mg/dl (8.6-10.3); Creatinine Clr Calc Pharmacy 68.9 ml/min; Est GFR (African American) 92.8 ml/min; Est GFR (Non-African American) 80.1 ml/min; Phosphorus 2.7 mg/dl (2.5-4.9); Potassium 3.3 mmol/L (3.5-5.1)
[2022-09-11] MEDS ORDERED: POTASSIUM CHLORIDE CRTAB 20 MEQ TABCR PO ONE (08:11)
[2022-09-11] MEDS: BRIMONIDINE TARTRATE/TIMOLOL OPB SCH ×2 (08:15→20:43)
[2022-09-11] MEDS: METOPROLOL SUCC 25MG EXT REL TAB PO SCH ×2 (08:15→20:41)
[2022-09-11] MEDS: DIGOXIN 0.125 MG TAB PO SCH ×2 (08:16→20:42)
[2022-09-11] MEDS: FUROSEMIDE 20 MG TAB PO SCH (08:16)
[2022-09-11] MEDS: APIXABAN 5 MG TABLET PO SCH ×2 (08:16→20:41)
--- NOTE | 2022-09-11 08:17 | Hospitalist Progress Note ---
Date of Service September 11, 2022 Assessment & Plan (1) Infection: Plan: Pt is a 87 yo male with PMH of afib on Eliquis, CHF, glaucoma, anemia, HLD, and HTN presenting due to weakness, fatigue, and unsteadiness. Presumed viral infection - hx of hospitalization in May 2022 w/ sepsis 2/2 presumed pulmonary source - pt was feeling better since that admission and has recently fallen ill again with URI sx - concern for tick borne illness d/t leukopenia/thrombocytopenia; peripheral smear neg - viral illness appears more likely at this point, especially with pt's recent considerable improvement - continue supportive care; no ABX appear necessary at this point as pt symptomatically improved and no longer requiring oxygen Atrial fibrillation - rate controlled, tachycardia most likely secondary to infection/deconditioning as above - continue Eliquis, metoprolol Acute hyponatremia- resolved - present upon admission - resolved on further lab work w/o intervention Elevated troponin - mild demand ischemia due to above Weakness - Deconditioning due to above in addition to a probable lack of complete recovery from illness in May 2022 (2) Atrial fibrillation: (3) Acute hyponatremia: (4) Elevated troponin: (5) Weakness: Plan FEN/GI: heart healthy, 1800 mL fluid restriction DVT ppx: eliquis Code status: full Consults: PT/OT Dispo: PCU/tele Admission and Anticipated Discharge Date Admission Date: September 09, 2022 Supervising Physician Co-Signing Physician Notes I personally examined the patient and verified all hernandez points of history and exam, discussed case, and agree with decision making with Dr Samuel. Feeling better. Breathing better. Less congested. Walking on his own. Although his vitals are still listed as being on 2 L in the chart, he is on room air whenever I see him. Updated patient and extensively. She notes that he was actually on antibiotics prior to admission for his sinusitis. Vitals noted, in general he is awake and alert pleasant no distress. HEENT normocephalic atraumatic mucous membranes moist. Breathing unlabored no accessory muscle use good effort. Skin shows no rashes no pallor or icterus. Neuro without focal deficits. Sinusitis/viral illness precipitating overall weakness, with reactive tachycardia manifest as A-fib/RVRoverall improving. After discussion with his today, it turns out he was on antibiotics prior to admissionso while his overall presentation appears most consistent with viral, to have recently adulterated by the antibiotics he is on, that, coupled with a CRP in the mid range of 15I will finish out the antibiotics he was already on. His rate control is improvingprobably both from the digoxin and just simply from feeling betterbut I suspect his A-fibas above notedwas really just a reactive tachycardia with a negative rhythm of atrial fibrillation. His overall weakness and deconditioningshould have ongoing outpatient therapy. Hopefully he will go home as soon as tomorrow. Subjective Pt seen at bedside this AM. He states he is overall feeling better. He still gets cold hands, but he states that the antibiotic medication has helped with that. Otherwise he denies chest pain, SOB, and leg pains. Review of Systems Review of Systems: All systems reviewed & are unremarkable except as noted in HPI & below Physical Exam Constitutional: NAD. Vitals WNL. Eyes: no conjunctival abnormality Respiratory: CTA bilaterally. No rhonchi, wheezing, or crackles. Non labored breathing. Cardiovascular: RRR. No murmur noted. No LE edema. Skin: no rashes, warm and dry Psychiatric: Alert. Mood and affect congruent. Results & Data Results & Data Vital Signs (Past 12 Hours) Vital Signs Temp Pulse Pulse Resp BP Pulse Ox O2 Del Method 09/11/22 07:41 96 H 09/11/22 07:41 Nasal Cannula 09/11/22 03:00 36.8 C 98 H 20 120/69 96 Nasal Cannula 09/10/22 23:46 36.8 C 72 22 124/72 94 Nasal Cannula 09/10/22 22:29 79 09/10/22 21:37 36.2 C L 79 19 95/57 L 95 Nasal Cannula 09/10/22 21:29 79 O2 Flow Rate 09/11/22 07:41 09/11/22 07:41 2 09/11/22 03:00 3 09/10/22 23:46 3 09/10/22 22:29 09/10/22 21:37 4 09/10/22 21:29 Resident Activity Tracking Resident Involvement: Resident Care Provided Care Provided: Adult Hospital Medicine
[2022-09-11] MEDS: DIGOXIN 125 MCG in SYRINGE 9.5 ML IV SCH (16:58)
--- NOTE | 2022-09-11 19:36 | Billing Data ---
Date of Service September 11, 2022 Coding Level of Care Code 91768 SUB INP/OBS CARE MIN
[2022-09-11] MEDS: AMOXICILLIN/CLAVULANATE 875 MG TAB PO SCH (20:39)
[2022-09-11] MEDS: ATORVASTATIN 40 MG TAB PO SCH (20:41)
[2022-09-11] MEDS: LATANOPROST 0.005% OP SOLN 2.5 ML BTL OPB SCH (20:42)
--- NOTE | 2022-09-12 08:22 | Hospitalist Progress Note ---
Date of Service September 12, 2022 Assessment & Plan (1) Infection: Plan: Pt is a 87 yo male with PMH of afib on Eliquis, CHF, glaucoma, anemia, HLD, and HTN presenting due to weakness, fatigue, and unsteadiness. Presumed viral infection - hx of hospitalization in May 2022 w/ sepsis 2/2 presumed pulmonary source - pt was feeling better since that admission and has recently fallen ill again with URI sx - concern for tick borne illness d/t leukopenia/thrombocytopenia; peripheral smear neg - viral illness appears more likely at this point, especially with pt's recent considerable improvement - continue supportive care; no ABX appear necessary at this point as pt symptomatically improved and no longer requiring oxygen Atrial fibrillation - rate controlled, tachycardia most likely secondary to infection/deconditioning as above - continue Eliquis, metoprolol Acute hyponatremia- resolved - present upon admission - resolved on further lab work w/o intervention Elevated troponin - mild demand ischemia due to above Weakness - Deconditioning due to above in addition to a probable lack of complete recovery from illness in May 2022 (2) Atrial fibrillation: (3) Acute hyponatremia: (4) Elevated troponin: (5) Weakness: Plan FEN/GI: heart healthy, 1800 mL fluid restriction DVT ppx: eliquis Code status: full Consults: PT/OT Dispo: PCU/tele Admission and Anticipated Discharge Date Admission Date: September 09, 2022 Results & Data Results & Data Vital Signs (Past 12 Hours) Vital Signs Temp Pulse Pulse Resp BP Pulse Ox O2 Del Method 09/12/22 07:57 81 09/12/22 03:46 36.5 C 80 119/66 91 Room Air 09/11/22 23:12 37.4 C 92 H 18 107/56 L 91 Room Air 09/11/22 20:42 94 H
[2022-09-12 08:28] LABS: Basophils # (auto) 0.01 K/uL (0-0.2); Basophils % (auto) 0.2 %; Eosinophils # (auto) 0.25 K/uL (0-0.50); Eosinophils % (auto) 4.2 %; Hematocrit (blood only) 33.1 % (42.0-52.0); Hemoglobin 11.3 g/dl (14.0-18.0); Immature Granulocytes # (auto) 0.02 K/uL (0.01-0.20); Immature Granulocytes % (auto) 0.3 %; Lymphocytes # (auto) 0.61 K/uL (1.2-3.4); Lymphocytes % (auto) 10.2 %; Mean Corpuscular Hemoglobin 31.7 pg (25.0-34.0); Mean Corpuscular Hgb Conc 34.1 g/dL (32.0-36.0); Mean Platelet Volume 11.7 fL (9.4-12.4); Monocytes # (auto) 0.41 K/uL (0.11-0.59); Monocytes % (auto) 6.9 %; Neutrophils # (auto) 4.66 K/uL (1.40-6.50); Neutrophils % (auto) 78.2 %; Platelet Count 143 K/uL (130-400); RDW Coefficient of Variation 14.1 % (11.5-14.5); Red Blood Count 3.56 M/uL (4.70-6.10); White Blood Count 5.96 K/ul (4.8-10.8)
[2022-09-12 08:37] LABS: Albumin Level 3.5 gm/dl (3.4-5.0); BUN Creatinine Ratio 20.3 (10-20); Calcium 8.5 mg/dl (8.6-10.3); Creatinine Clr Calc Pharmacy 71.5 ml/min; Est GFR (African American) 94.2 ml/min; Est GFR (Non-African American) 81.3 ml/min; Phosphorus 1.9 mg/dl (2.5-4.9); Potassium 3.7 mmol/L (3.5-5.1)
[2022-09-12] MEDS: FUROSEMIDE 20 MG TAB PO SCH (08:40)
[2022-09-12] MEDS: METOPROLOL SUCC 25MG EXT REL TAB PO SCH (08:40)
[2022-09-12] MEDS: BRIMONIDINE TARTRATE/TIMOLOL OPB SCH (08:41)
[2022-09-12] MEDS: AMOXICILLIN/CLAVULANATE 875 MG TAB PO SCH (08:41)
[2022-09-12] MEDS: APIXABAN 5 MG TABLET PO SCH (08:42)
--- NOTE | 2022-09-12 14:39 | Discharge Summary ---
Date of Service September 12, 2022 Admission HPI Per Admitting Provider The patient is a 87-year-old male with a past medical history including atrial fibrillation/flutter, hypertension, chronic anticoagulation with Eliquis, hyperlipidemia, glaucoma, CHF and hypertension. The patient has a history of A- fib/flutter,, and is status post pacer. He describes orthostatic hypotension symptoms, worsening over the past few days, where he feels like he is going to get lightheaded or dizzy when he goes from sitting to standing. He was started on metoprolol succinate 12.5 mg daily by outpatient physician, and has had 2 doses so far. Significant laboratories: Troponin 23.2, magnesium 1.8, sodium 129, hemoglobin 11.9, hematocrit 34.8, glucose 131, serum osmolality 276 and urine osmolality 507 Admission Exam Per Admitting Provider The patient is awake, alert and oriented 3, well developed and well nourished, normocephalic and atraumatic, lying in bed and in no acute distress. HEENT--PERRL, EOMI, mucous membranes and oropharynx normal. Neck--supple. No JVD. No bruits. Thyroid normal, trachea midline, no adenopathy. Heart--mildly tachycardic. Normal S1 and S2. No murmurs, rubs or gallops. Lungs--clear bilaterally, no respiratory distress, no accessory muscle use. Abdomen--normal bowel sounds and soft. Nontender. Nondistended, no hernias or masses, no organomegaly. Extremities--no cyanosis or clubbing. No edema. Dermatologic--normal skin turgor, normal color, no abnormal lymph nodes, no rash. Neurologic--cranial nerves II through XII grossly intact. Rheumatologic--normal range of motion. Psychiatric--normal affect. Principal Diagnosis deconditioning in the setting of presumed viral illness Discharge Exam Constitutional: well appearing, no acute distress HEENT: normocephalic, no conjunctival injection CV: regular rhythm, no murmur, no LE edema Respiratory: Clear to auscultation bilaterally. No rhonchi, wheezes, or crackles. No increased work of breathing GI: soft, nondistended, positive bowel sounds MSK: no gross deformities noted Skin: warm, dry, no rashes Neuro: alert, oriented, no FND noted Discharge Data Allergies Allergy/AdvReac Type Severity Reaction Status Date / Time morphine AdvReac Severe nausea/vomi Verified 09/09/22 22:48 ting Consultations 09/09/22 22:18 ED Decision to Admit Stat 09/10/22 01:13 Consult Cardiology Routine 09/10/22 07:32 Consult Cardiology Routine Hospital Course (1) Infection: Pt is a 87 yo male with PMH of afib on Eliquis, CHF, glaucoma, anemia, HLD, and HTN presenting due to weakness, fatigue, and unsteadiness. Presumed viral infection - hx of hospitalization in May 2022 w/ sepsis 2/2 presumed pulmonary source - pt was feeling better since that admission and has recently fallen ill again with URI sx - concern for tick borne illness d/t leukopenia/thrombocytopenia; peripheral smear neg - viral illness appears more likely at this point, especially with pt's recent considerable improvement - continue supportive care - pt was prescribed augmentin prior to hospitalization for sinusitis; recommend continuation of augmentin as prescribed Atrial fibrillation - rate controlled, tachycardia most likely secondary to infection/deconditioning as above - cardio recommended addition of digoxin; ordered dig level for later this week, pt to f/u with cardio to determine if needed group home - continue Eliquis, metoprolol Acute hyponatremia- resolved - present upon admission - resolved on further lab work w/o intervention Elevated troponin - mild demand ischemia due to above Weakness - Deconditioning due to above in addition to a probable lack of complete recovery from illness in May 2022 - recommend outpatient PT to continue to improve strength (2) Atrial fibrillation: (3) Acute hyponatremia: (4) Elevated troponin: (5) Weakness: Plan FEN/GI:heart healthy, 1800 mL fluid restriction DVT ppx: eliquis Code status: full Consults:PT/OT Dispo:home with outpatient PT Total Time Total Time Spent Total Time Spent (In Minutes): <30 Discharge Plan Discharge Items Patient Disposition: Home - Self-Care Reason For Visit: TACHYBRADY SYNDROME, ATRIAL FIB/FLUTT,NEAR SYNCOPE Discharge Diagnosis: general (presumed viral) illness in the setting of deconditioning Condition on Discharge: Fair Activity: Per Instructions section Non-emergency contact: Primary Care Provider Call non-emergency contact if: you have any medication questions and your symptoms worsen Follow-up/Referrals: Toan Smith DO [Physician] - (hospital f/u, hx of afib, addition of digoxin during hospitalization) Nati Trimble [Primary Care Provider] - Diet: Heart Healthy Ambulatory Orders: Digoxin (Routine) Timeframe: [id number] Location: Determined by Patient Ordered By: Trupti Pratt Attending Provider Instructions: You were admitted to the hospital for overall weakness and lightheaded/dizziness. You were treated supportively. Cardiology recommended the addition of another medication to help control your heart rate called digoxin. The level of digoxin in your blood should be checked later this week to ensure that the dose you are on now is the proper dose. A discharge summary will be sent to your primary care physician to ensure continuity of care. Please bring this discharge summary with you to your next office appointment so that your provider can review it at that time. Medications: Your medication list has been reviewed and reconciled upon discharge to ensure accuracy and continuity of care. An updated list of all your medications is included with your hospital discharge paperwork. Please review this list closely and make note of any changes to your medications. - The bed laborer recommended the addition of digoxin, a medication to help control your heart rate. This should be taken once per day at around the same time each day. - Otherwise, you may continue your medications as before hospitalization. Specifically, complete your course of the antibiotic augmentin as prescribed prior to your hospitalization. Follow up appointments: - Make a follow up appointment with your PCP within the next week. It is very important that you follow up with them shortly after discharge from the hospital. - Keep all of your follow up appointments as already scheduled. If you cannot make an appointment, notify your provider. CONTACT YOUR PRIMARY CARE PROVIDER if you experience any of the following: - New onset nausea and/or dizziness different than before. If this happens please stop your digoxin and call your doctor. - Difficulty following your treatment plan - Difficulty taking any of your medications CALL 911 OR GO TO THE EMERGENCY DEPARTMENT if you experience any of the following: - Sudden, severe abdominal pain or nausea/vomiting - Severe chest pain or chest pain that radiates to your jaw or arm - Sudden, severe shortness of breath or difficulty breathing Pending Studies at Discharge: No Stand-Alone Forms: My [employer], Smoking Cessation Medications and DC Order Prescriptions: New digoxin [Digitek] 125 mcg (0.125 mg) Tablet 0.125 mg PO DAILY@1600 Qty: 30 1RF Continued metoprolol succinate 25 mg tablet extended release 24 hr 12.5 mg PO QPM amoxicillin-pot clavulanate 500-125 mg tablet 1 tab PO AMPM Rx Instructions: take for 7 days started 09/06/22 atorvastatin 40 mg tablet 40 mg PO HS amlodipine 5 mg tablet 5 mg PO QAM furosemide 20 mg tablet 20 mg PO QAM Eliquis 5 mg tablet 5 mg PO AMHS latanoprost 0.005 % drops 1 drp OPB HS brimonidine-timolol [Combigan] 0.2-0.5 % drops 1 drp OPB AMHS Discharge Orders: Discharge Order (Routine); Ordered 09/12/22 Ordered By: Trupti Ribeiro/Other Patient Handouts: AFib Dc Admission Data Admit Date/Time: 09/09/22 23:22 Attending Provider: Shahbaz Xiong Admit Provider: Barak Brewer Primary Care Provider: Nati Trimble Other Providers: Barak Brewer ; Seth Moya ; Toan Smith Other Interventions: Discharge Summary Assessment (RN) Last Done: 09/12/22 13:33 Supervising Physician Co-Signing Physician Notes I personally examined the patient and verified all hernandez points of history and exam, discussed case, and agree with decision making with Dr Samuel. Feels good and would like to go home. present and feels comfortable taking him home. We have an extensive discussion about recoveryand especially the critical importance of therapy and strengthening to improve his deconditioning, and good nutrition to keep up his strength. Vitals noted, in general he is awake and alert pleasant no distress. HEENT normocephalic atraumatic mucous membranes moist. Breathing unlabored no accessory muscle use good effort. Skin shows no rashes no pallor or icterus. Neuro without focal deficits. Sinusitis/viral illness precipitating overall weakness, with reactive tachycardia manifest as A-fib/RVRoverall improving. Infectious picture improving, appears safe/stable for home. His rate control is improvingprobably both from the digoxin and just simply from feeling betterbut I suspect his A- fibas above notedwas really just a reactive tachycardia with a negative rhythm of atrial fibrillation. That said, given that he will be recovering from this infection for a bit, and will be recovering from his deconditioning for probably a few months, we can utilize the digoxin as long as he continues to tolerate it well at least for the short but indefinite future until he gets back to his baseline. Check a digoxin level later this coming week. His overall weakness and deconditioningshould have ongoing outpatient therapy. Safe/stable for home, close PCP follow-up. Resident Activity Tracking Resident Involvement: Resident Care Provided Care Provided: Adult [facility]
[2022-09-12] MEDS ORDERED: DIGOXIN 0.125 MG TAB PO SCH (16:00)
--- NOTE | 2022-09-12 18:16 | Billing Data ---
Date of Service September 12, 2022 Coding Level of Care Code 66134 IN/OBS DISCH 30 MIN/LESS
[2022-09-15 06:18] LABS: Babesia microti DNA Not Detected (Not Detected)
== END 2022-09-12 14:37 | disposition home or self-care (01) | DRG 309 ==
LOC: ED 20:59 → SUATTDRO 23:22 → 2S 23:22
DX: Z88.5 Allergy status to narcotic agent; Z79.899 Other long term (current) drug therapy; I10 Essential (primary) hypertension; I48.92 Unspecified atrial flutter; I95.1 Orthostatic hypotension; Z79.01 Long term (current) use of anticoagulants; E78.5 Hyperlipidemia, unspecified; I48.91 Unspecified atrial fibrillation; E87.1 Hypo-osmolality and hyponatremia; E83.42 Hypomagnesemia; I24.8 Other forms of acute ischemic heart disease; H40.9 Unspecified glaucoma; D64.9 Anemia, unspecified